=== PATIENT | female | born 1955 | race Caucasian/White ===

== ENCOUNTER 2017-05-31 22:57 | Inpatient (IN) | payer BC ==
[~2017-05-31] VITALS: Ht 157.5 cm; Wt 71.3 kg
[2017-05-31] MEDS ORDERED: ONDANSETRON 2MG/ML, 2ML ONE (23:23)
[2017-05-31] MEDS ORDERED: MORPHINE SULFATE 4 MG/ML, 1ML ONE (23:23)
[2017-05-31] MEDS ORDERED: SODIUM CHLORIDE 0.9% 1,000ML IVBOLUS ONE (23:30)
[2017-05-31] MEDS ORDERED: ONDANSETRON 2MG/ML, 2ML IVPush ONE (23:30)
[2017-05-31] MEDS ORDERED: SODIUM CHLORIDE FLUSH 10ML SYR IVF ONE (23:30)
[2017-05-31] MEDS: MORPHINE SULFATE 4 MG/ML, 1ML IVPush PRN (23:41)
[2017-06-01] MEDS ORDERED: MORPHINE SULFATE 4 MG/ML, 1ML ONE ×2 (00:06→00:46)
[2017-06-01] MEDS: MORPHINE SULFATE 4 MG/ML, 1ML IVPush PRN (00:11)
[2017-06-01 00:12] LABS: BASOPHILS # (AUTO) 0.03 x10^3/uL (0-0.1); BASOPHILS % (AUTO) 0 % (0-1); EOSINOPHILS # (AUTO) 0.06 x10^3/uL (0-0.4); EOSINOPHILS % (AUTO) 0 % (1-7); LYMPHOCYTES # (AUTO) 2.12 x10^3/uL (1-3.4); LYMPHOCYTES % (AUTO) 14 % (22-44); MD NO; MEAN CORPUSCULAR HGB CONC 34.2 g/dL (32.4-35.8); MEAN CORPUSCULAR VOLUME 84.8 fL (80-100); MEAN PLATELET VOLUME 8.2 fL (7.4-10.4); MONOCYTES # (AUTO) 1.27 x10^3/uL (0.2-0.8); MONOCYTES % (AUTO) 9 % (2-9); NEUTROPHILS # (AUTO) 11.39 x10^3/uL (1.8-6.8); NEUTROPHILS % (AUTO) 77 % (42-75); PLATELET COUNT 315 x10^3/uL (130-400); RED BLOOD COUNT 5.05 x10^6/uL (3.82-5.3); RED CELL DISTRIBUTION WIDTH 13.7 % (9.6-15.2)
[2017-06-01 00:20] LABS: ALBUMIN 3.5 g/dL (3.4-5.0); ANION GAP 7 mmol/L (5-15); CALCIUM 8.6 mg/dL (8.5-10.1); CHLORIDE 109 mmol/L (98-107); CREATININE 0.59 mg/dL (0.55-1.02)
[2017-06-01] MEDS ORDERED: MORPHINE SULFATE 4 MG/ML, 1ML IVPush ONE (01:00)
[2017-06-01 01:21] LABS: HCT (SEDRATE) 42.8 % (34.6-47.8)
[2017-06-01] MEDS ORDERED: OXYcodone/APAP 5/325MG TABLET ONE (01:46)
[2017-06-01] MEDS ORDERED: OXYcodone/APAP 10/325MG TABLET ONE (01:51)
[2017-06-01] MEDS ORDERED: SODIUM CHLORIDE 0.9% 1,000ML IVBOLUS ONE (02:00)
[2017-06-01] MEDS ORDERED: OXYcodone/APAP 10/325MG TABLET PO ONE (02:00)
[2017-06-01] MEDS ORDERED: OMNIPAQUE 350 MG/ML, 100ML BOTTLE ONE (02:10)
[2017-06-01 02:28] LABS: CULTURE INDICATED? YES; MICROSCOPIC INDICATED
[2017-06-01] MEDS ORDERED: MORPHINE SULFATE 4 MG/ML, 1ML IVPush PRN (03:30)
[2017-06-01 03:59] VITALS: BP 109/68
[2017-06-01] MEDS ORDERED: POLYETHYLENE GLYCOL 17 GM PACKET PO PRN (07:00)
[2017-06-01] MEDS ORDERED: ONDANSETRON 2MG/ML, 2ML IVPush PRN ×2 (07:00→13:30)
[2017-06-01] MEDS ORDERED: DOCUSATE 100 MG CAPSULE PO PRN (07:00)
[2017-06-01] MEDS ORDERED: ACETAMINOPHEN 325 MG TABLET PO PRN ×2 (07:00→13:30)
[2017-06-01] MEDS ORDERED: HYDROcodone/APAP 5/325 TABLET PO PRN (07:00)
[2017-06-01] MEDS ORDERED: LIDOCAINE 1%, 20ML ONE (08:27)
[2017-06-01] MEDS ORDERED: OMNIPAQUE 180 MG/ML, 10ML VIAL ONE (08:30)
[2017-06-01] MEDS: SODIUM CHLORIDE FLUSH 10ML SYR IVF SCH ×2 (09:00→21:21)
[2017-06-01] MEDS: morphine SULFATE 10 MG/ML, 1ML IVPush PRN ×3 (09:03→21:21)
[2017-06-01] MEDS: SENNA/DOCUSATE TABLET PO SCH (09:04)
[2017-06-01] MEDS: NICOTINE 7 MG/24 HR PATCH.TD24 TD SCH (09:04)
[2017-06-01] MEDS ORDERED: LACTATED RINGERS 1,000 ML IV SCH (12:02)
[2017-06-01] MEDS ORDERED: CEFTRIAXONE PMX 1GM/50ML 50 ML IV SCH (12:30)
[2017-06-01] MEDS ORDERED: FENTANYL PF 100 MCG/2ML ONE ×2 (12:44→14:08)
[2017-06-01] MEDS ORDERED: MIDAZOLAM 1 MG/ML, 2ML ONE (12:44)
[2017-06-01] MEDS ORDERED: KETOROLAC 30 MG/1 ML ONE (12:47)
[2017-06-01] MEDS ORDERED: BACITRACIN 50,000 UNIT ONE (13:11)
[2017-06-01] MEDS ORDERED: morphine SULFATE 10 MG/ML, 1ML IV PRN (13:30)
[2017-06-01] MEDS ORDERED: ALBUTEROL/IPRATROPIUM 2.5MG/0.5MG, 3 ML NPPB PRN (13:30)
[2017-06-01] MEDS ORDERED: MIDAZOLAM 1 MG/ML, 2ML IV PRN (13:30)
[2017-06-01] MEDS ORDERED: HYDROcodone/APAP 7.5-325MG/15ML UDC PO PRN (13:30)
[2017-06-01] MEDS ORDERED: hydrALAzine 20 MG/ML, 1ML IV PRN (13:30)
[2017-06-01] MEDS ORDERED: METOPROLOL 1 MG/ML, 5ML IV PRN (13:30)
[2017-06-01] MEDS ORDERED: LABETALOL 5MG/ML, 20ML IV PRN (13:30)
[2017-06-01] MEDS ORDERED: DIAZEPAM 5 MG/ML, 2ML IVPush PRN (13:30)
[2017-06-01] MEDS ORDERED: ALBUTEROL SULFATE 2.5 MG/3 ML NPPB PRN (13:30)
[2017-06-01] MEDS ORDERED: OXYcodone 5 MG/5 ML ORAL.SOL UDC PO PRN (13:30)
[2017-06-01] MEDS ORDERED: PROMETHAZINE 12.5 MG SUPP PR PRN (13:30)
[2017-06-01] MEDS ORDERED: EPHEDRINE 50 MG/ML, 1ML IVPush PRN (13:30)
[2017-06-01] MEDS ORDERED: PROMETHAZINE 25 MG/ML, 1ML IV PRN (13:30)
[2017-06-01] MEDS ORDERED: CEFAZOLIN 1,000 MG ONE (14:06)
[2017-06-01] MEDS ORDERED: ONDANSETRON 2MG/ML, 2ML ONE (14:06)
[2017-06-01] MEDS ORDERED: DEXAMETHASONE 4 MG/ML, 1ML ONE (14:06)
[2017-06-01] MEDS ORDERED: PROPOFOL 10 MG/ML, 20ML ONE (14:06)
[2017-06-01] MEDS ORDERED: ACETAMINOPHEN 650 MG/20.3 ML UDC ONE (14:08)
[2017-06-01] MEDS ORDERED: OXYcodone 5 MG/5 ML ORAL.SOL UDC ONE (14:08)
[2017-06-01] MEDS: FENTANYL PF 100 MCG/2ML IV PRN ×2 (14:10→14:20)
[2017-06-01] MEDS ORDERED: VANCOMYCIN PER PHARMACY MC PRN (14:30)
[2017-06-01] MEDS ORDERED: morphine SULFATE 10 MG/ML, 1ML ONE (14:30)
[2017-06-01] MEDS ORDERED: PHARMACOKINETIC CONSULTATION MC ONE (15:00)
[2017-06-01] MEDS ORDERED: PHARMACOKINETIC MONITORING MC PRN (15:00)
[2017-06-01] MEDS: AMPICILLIN/SULBACTAM 3 GM in SODIUM CHLORIDE 0.9% 100 ML IV SCH ×2 (16:32→21:47)
[2017-06-01] MEDS: VANCOMYCIN 1,400 MG in SODIUM CHLORIDE 0.9% 250 ML IV SCH (17:28)
[2017-06-01 19:30] VITALS: BP 108/66
[2017-06-02 03:15] VITALS: BP 107/67
[2017-06-02] MEDS: AMPICILLIN/SULBACTAM 3 GM in SODIUM CHLORIDE 0.9% 100 ML IV SCH ×4 (04:21→22:01)
[2017-06-02 04:43] LABS: CREATININE 0.62 mg/dL (0.55-1.02)
[2017-06-02] MEDS: VANCOMYCIN 1,400 MG in SODIUM CHLORIDE 0.9% 250 ML IV SCH ×2 (04:56→18:11)
[2017-06-02] MEDS: morphine SULFATE 10 MG/ML, 1ML IVPush PRN ×5 (05:04→22:08)
[2017-06-02] MEDS: NICOTINE 7 MG/24 HR PATCH.TD24 TD SCH (07:00)
[2017-06-02] MEDS: SODIUM CHLORIDE FLUSH 10ML SYR IVF SCH ×2 (07:47→20:00)
[2017-06-02] MEDS: SENNA/DOCUSATE TABLET PO SCH (07:47)
[2017-06-02] MEDS: ENOXAPARIN 40 MG/0.4 ML SQ SCH (07:52)
[2017-06-02 08:31] VITALS: BP 101/63
[2017-06-02 15:07] VITALS: BP 113/66
[2017-06-02 19:38] VITALS: BP 110/52
[2017-06-03 02:21] VITALS: BP 118/64
[2017-06-03] MEDS: morphine SULFATE 10 MG/ML, 1ML IVPush PRN ×3 (02:26→11:40)
[2017-06-03] MEDS: AMPICILLIN/SULBACTAM 3 GM in SODIUM CHLORIDE 0.9% 100 ML IV SCH ×4 (04:20→20:47)
[2017-06-03 04:36] LABS: BASOPHILS # (AUTO) 0.13 x10^3/uL (0-0.1); BASOPHILS % (AUTO) 1 % (0-1); EOSINOPHILS # (AUTO) 0.09 x10^3/uL (0-0.4); EOSINOPHILS % (AUTO) 1 % (1-7); LYMPHOCYTES # (AUTO) 3.43 x10^3/uL (1-3.4); LYMPHOCYTES % (AUTO) 34 % (22-44); MD NO; MEAN CORPUSCULAR HEMOGLOBIN 29.2 pg (27.0-34.8); MEAN CORPUSCULAR HGB CONC 33.7 g/dL (32.4-35.8); MEAN CORPUSCULAR VOLUME 86.5 fL (80-100); MEAN PLATELET VOLUME 8.2 fL (7.4-10.4); MONOCYTES # (AUTO) 0.92 x10^3/uL (0.2-0.8); MONOCYTES % (AUTO) 9 % (2-9); NEUTROPHILS # (AUTO) 5.48 x10^3/uL (1.8-6.8); NEUTROPHILS % (AUTO) 55 % (42-75); PLATELET COUNT 249 x10^3/uL (130-400); RED BLOOD COUNT 3.85 x10^6/uL (3.82-5.3); RED CELL DISTRIBUTION WIDTH 14.1 % (9.6-15.2)
[2017-06-03] MEDS: VANCOMYCIN 1,400 MG in SODIUM CHLORIDE 0.9% 250 ML IV SCH ×2 (05:48→18:51)
[2017-06-03] MEDS: NICOTINE 7 MG/24 HR PATCH.TD24 TD SCH (07:00)
[2017-06-03 07:25] VITALS: BP 102/50
[2017-06-03] MEDS: ENOXAPARIN 40 MG/0.4 ML SQ SCH (08:32)
[2017-06-03] MEDS: SENNA/DOCUSATE TABLET PO SCH (08:33)
[2017-06-03] MEDS: SODIUM CHLORIDE FLUSH 10ML SYR IVF SCH ×2 (08:33→20:46)
[2017-06-03 14:16] VITALS: BP 110/67
[2017-06-03 19:50] VITALS: BP 93/57
[2017-06-04 00:18] VITALS: BP 119/74
[2017-06-04 04:28] LABS: BASOPHILS # (AUTO) 0.04 x10^3/uL (0-0.1); BASOPHILS % (AUTO) 1 % (0-1); EOSINOPHILS # (AUTO) 0.13 x10^3/uL (0-0.4); EOSINOPHILS % (AUTO) 2 % (1-7); LYMPHOCYTES # (AUTO) 2.33 x10^3/uL (1-3.4); LYMPHOCYTES % (AUTO) 28 % (22-44); MD NO; MEAN CORPUSCULAR HEMOGLOBIN 28.5 pg (27.0-34.8); MEAN CORPUSCULAR HGB CONC 33.3 g/dL (32.4-35.8); MEAN CORPUSCULAR VOLUME 85.6 fL (80-100); MEAN PLATELET VOLUME 8.2 fL (7.4-10.4); MONOCYTES # (AUTO) 0.77 x10^3/uL (0.2-0.8); MONOCYTES % (AUTO) 9 % (2-9); NEUTROPHILS # (AUTO) 5.11 x10^3/uL (1.8-6.8); NEUTROPHILS % (AUTO) 61 % (42-75); PLATELET COUNT 299 x10^3/uL (130-400); RED BLOOD COUNT 4.14 x10^6/uL (3.82-5.3); RED CELL DISTRIBUTION WIDTH 14.3 % (9.6-15.2)
[2017-06-04] MEDS: AMPICILLIN/SULBACTAM 3 GM in SODIUM CHLORIDE 0.9% 100 ML IV SCH ×4 (04:30→22:32)
[2017-06-04 04:34] LABS: ALANINE AMINOTRANSFERASE 23 U/L (12-78); ALBUMIN 2.6 g/dL (3.4-5.0); ANION GAP 4 mmol/L (5-15); CALCIUM 8.5 mg/dL (8.5-10.1); CHLORIDE 109 mmol/L (98-107)
[2017-06-04 04:44] LABS: ALKALINE PHOSPHATASE 70 U/L (45-117); BILIRUBIN,TOTAL 0.5 mg/dL (0.2-1.0); TOTAL PROTEIN 6.4 g/dL (6.4-8.2)
[2017-06-04 04:50] LABS: HCT (SEDRATE) 33.3 % (34.6-47.8)
[2017-06-04] MEDS: VANCOMYCIN 1,400 MG in SODIUM CHLORIDE 0.9% 250 ML IV SCH ×2 (05:47→17:57)
[2017-06-04] MEDS: NICOTINE 7 MG/24 HR PATCH.TD24 TD SCH (07:00)
[2017-06-04] MEDS: ENOXAPARIN 40 MG/0.4 ML SQ SCH (07:32)
[2017-06-04 08:36] VITALS: BP 117/68
[2017-06-04] MEDS: SODIUM CHLORIDE FLUSH 10ML SYR IVF SCH ×2 (09:00→21:00)
[2017-06-04] MEDS: SENNA/DOCUSATE TABLET PO SCH (09:07)
[2017-06-04 14:00] VITALS: BP 121/77
[2017-06-04 20:00] VITALS: BP 112/57
[2017-06-05 04:00] VITALS: BP 126/74
[2017-06-05] MEDS: AMPICILLIN/SULBACTAM 3 GM in SODIUM CHLORIDE 0.9% 100 ML IV SCH ×3 (04:48→16:30)
[2017-06-05] MEDS: VANCOMYCIN 1,400 MG in SODIUM CHLORIDE 0.9% 250 ML IV SCH (05:42)
[2017-06-05] MEDS: NICOTINE 7 MG/24 HR PATCH.TD24 TD SCH (09:00)
[2017-06-05] MEDS: SODIUM CHLORIDE FLUSH 10ML SYR IVF SCH (09:01)
[2017-06-05] MEDS: SENNA/DOCUSATE TABLET PO SCH (09:01)
[2017-06-05] MEDS: ENOXAPARIN 40 MG/0.4 ML SQ SCH (09:04)
[2017-06-05 09:40] VITALS: BP 121/69
[2017-06-05 14:50] VITALS: BP 130/66
[2017-06-05] MEDS ORDERED: PRED5TAB PO (15:24)
[2017-06-05] MEDS ORDERED: IBUP-1222 PO (15:24)
== END 2017-06-05 17:24 | disposition home or self-care (01) | DRG 501 ==
LOC: ED 23:59 → EDIP 06-01 03:00 → 3NW 06-01 03:48
PROVIDERS: ADMIT Family Medicine; ATTEND Family Medicine
PROC: 0J9L0ZZ Drainage of Right Upper Leg Subcutaneous Tissue and Fascia, Open Approach (ICD-10-PCS; 2017-06-01)
PROC: 0S993ZZ Drainage of Right Hip Joint, Percutaneous Approach (ICD-10-PCS; principal; 2017-06-01 12:30)
DX: M00.9 Pyogenic arthritis, unspecified (principal); N39.0 Urinary tract infection, site not specified; F17.210 Nicotine dependence, cigarettes, uncomplicated; M25.451 Effusion, right hip; Z66 Do not resuscitate; Z82.3 Family history of stroke; Z90.81 Acquired absence of spleen
CPT/HCPCS: 20610; 20611; 36415; 72193; 80048; 80053; 80202; 81001; 82040; 82565; 82945; 84145; 84157; 84520; 85025; 85651; 86140; 86200; 86430; 86431; 87015; 87040; 87070; 87075; 87086; 87102; 87116; 87205; 87206; 89051; 89060; 96361; 96374; 96375; 96376; J0295; J0690; J1100; J1650; J1885; J2250; J2405; J2704; J3010; J3370; J3490; Q9965; Q9967; J2270; J7030; J7050

== ENCOUNTER 2017-10-04 17:18 | Emergency (ER) | payer BC ==
[~2017-10-04] VITALS: Ht 157.5 cm; Wt 65.0 kg
[~2017-10-04 17:18] MED LIST: IBUP-1222 PO; PRED5TAB PO
[2017-10-04] MEDS ORDERED: ONDANSETRON ODT 4 MG ONE (17:55)
[2017-10-04] MEDS ORDERED: HYDROmorphone 2 MG/ML, 1ML ONE (17:56)
[2017-10-04] MEDS ORDERED: ONDANSETRON ODT 4 MG PO ONE (18:00)
[2017-10-04] MEDS ORDERED: HYDROmorphone 2 MG/ML, 1ML IM ONE (18:00)
[2017-10-04 18:22] LABS: BASOPHILS # (AUTO) 0.05 x10^3/uL (0-0.1); BASOPHILS % (AUTO) 0 % (0-1); EOSINOPHILS # (AUTO) 0.06 x10^3/uL (0-0.4); EOSINOPHILS % (AUTO) 0 % (1-7); LYMPHOCYTES # (AUTO) 2.06 x10^3/uL (1-3.4); LYMPHOCYTES % (AUTO) 15 % (22-44); MD NO; MEAN CORPUSCULAR HEMOGLOBIN 28.4 pg (27.0-34.8); MEAN CORPUSCULAR HGB CONC 33.5 g/dL (32.4-35.8); MEAN CORPUSCULAR VOLUME 84.9 fL (80-100); MEAN PLATELET VOLUME 8.1 fL (7.4-10.4); MONOCYTES # (AUTO) 0.88 x10^3/uL (0.2-0.8); MONOCYTES % (AUTO) 6 % (2-9); NEUTROPHILS # (AUTO) 10.66 x10^3/uL (1.8-6.8); NEUTROPHILS % (AUTO) 78 % (42-75); PLATELET COUNT 333 x10^3/uL (130-400); RED BLOOD COUNT 4.88 x10^6/uL (3.82-5.3)
[2017-10-04 18:34] LABS: ALBUMIN 3.8 g/dL (3.4-5.0); ANION GAP 7 mmol/L (5-15); CALCIUM 9.2 mg/dL (8.5-10.1); CHLORIDE 108 mmol/L (98-107); CREATININE 0.61 mg/dL (0.55-1.02)
[2017-10-04] MEDS ORDERED: KETOROLAC 30 MG/1 ML ONE (18:49)
[2017-10-04] MEDS ORDERED: LIDOCAINE 1%, 10ML INFIL ONE (19:00)
[2017-10-04] MEDS ORDERED: KETOROLAC 60 MG/2 ML IM ONE (19:00)
[2017-10-04 19:22] LABS: HCT (SEDRATE) 35.4 % (34.6-47.8)
[2017-10-04 19:40] LABS: MICROSCOPIC AUTO
[2017-10-04 19:42] LABS: CULTURE INDICATED? NO
[2017-10-04] MEDS ORDERED: LIDOCAINE-MPF 2% ,5ML ONE (19:55)
[2017-10-04 21:30] VITALS: BP 118/41
[2017-10-04] MEDS ORDERED: HYDROcodone/APAP 5/325 TABLET PO ONE (22:00)
== END 2017-10-04 22:01 | disposition home or self-care (01) ==
LOC: ED 21:13
DX: M06.861 Other specified rheumatoid arthritis, right knee (principal); F17.200 Nicotine dependence, unspecified, uncomplicated
CPT/HCPCS: 20610; 36415; 73564; 80048; 81001; 82040; 85025; 85651; 85810; 86140; 87070; 87205; 89050; 89060; 96372; 99285; J1170; J1885; J7512; Q0162

== ENCOUNTER 2019-04-01 10:38 | Outpatient (CLI) | payer BC | END 2019-04-01 23:59 | disposition home or self-care (01) | LOC: CFH 10:38 | PROVIDERS: ATTEND Family Medicine | DX: Z12.31 Encounter for screening mammogram for malignant neoplasm of breast (principal); N64.89 Other specified disorders of breast | CPT/HCPCS: 77067 ==

== ENCOUNTER 2020-08-02 18:43 | Emergency (ER) | payer BC ==
[~2020-08-02] VITALS: Ht 157.5 cm; Wt 67.0 kg
[2020-08-02 19:24] LABS: BASOPHILS % (AUTO) 1 % (0-1); EOSINOPHILS % (AUTO) 1 % (1-7); LYMPHOCYTES % (AUTO) 23 % (22-44); MD NO; MEAN CORPUSCULAR HEMOGLOBIN 29.2 pg (27.0-34.8); MEAN CORPUSCULAR HGB CONC 33.3 g/dL (32.4-35.8); MONOCYTES % (AUTO) 8 % (2-9); NEUTROPHILS % (AUTO) 68 % (42-75); PLATELET COUNT 274 x10^3/uL (130-400); RED BLOOD COUNT 5.24 x10^6/uL (3.82-5.3); RED CELL DISTRIBUTION WIDTH 14.1 % (9.6-15.2)
[2020-08-02 19:33] LABS: ALBUMIN 3.9 g/dL (3.4-5.0); ANION GAP 7 mmol/L (5-15); CHLORIDE 108 mmol/L (98-107); CREATININE 0.74 mg/dL (0.55-1.02)
--- NOTE | 2020-08-02 20:50 | NUR ---
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 THAT COMES AND GOES TYPICALLY WITHIN A FEW HOURS AND MOVES TO DIFFERENT BODY PARTS. THIS AM L ANKLE HAD FLARE UP PT WENT TO WORK PAIN CAME BACK AND PT COULD NOT WALK 10/10 PAIN THAT IS CONSTANT. WITH DAUGTER AT BEDSIDE.
[2020-08-02] MEDS ORDERED: HYDROmorphone 1 MG/ML, 1ML INJ ONE (21:22)
[2020-08-02] MEDS ORDERED: ONDANSETRON ODT 4 MG ONE (21:24)
[2020-08-02] MEDS ORDERED: HYDROmorphone 1 MG/ML, 1ML INJ IM ONE (21:30)
[2020-08-02] MEDS ORDERED: ONDANSETRON ODT 4 MG PO ONE (21:30)
[2020-08-02 21:39] LABS: C-REACTIVE PROTEIN, QUANT 0.7 mg/dL (0.02-0.49)
[2020-08-02 22:22] VITALS: BP 116/51
[2020-08-02] MEDS ORDERED: OXYcodone/APAP 10/325MG TABLET ONE (22:48)
[2020-08-02] MEDS ORDERED: OXYcodone/APAP 10/325MG TABLET PO ONE (23:00)
== END 2020-08-02 23:01 | disposition home or self-care (01) ==
LOC: ED 21:06
DX: M25.572 Pain in left ankle and joints of left foot (principal); M06.872 Other specified rheumatoid arthritis, left ankle and foot
CPT/HCPCS: 36415; 73610; 80048; 82040; 84550; 85025; 85651; 86140; 96372; 99284; J1170; Q0162